=== PATIENT | male | born 1995 | race African-American/Black ===

== ENCOUNTER 2021-01-18 15:29 | Emergency (ER) | payer OTHER ==
[~2021-01-18] VITALS: Ht 165.1 cm; Wt 84.2 kg
[2021-01-18 15:31] VITALS: BP 126/58
== END 2021-01-18 17:26 | disposition left against medical advice (07) ==
LOC: M ED 15:29
DX: Z53.21 Procedure and treatment not carried out due to patient leaving prior to being seen by health care provider (principal)

== ENCOUNTER 2022-08-01 17:31 | Emergency (ER) | payer OTHER ==
[~2022-08-01] VITALS: Ht 165.1 cm; Wt 91.5 kg
[2022-08-01 20:59] VITALS: BP 169/65
== END 2022-08-01 21:05 | disposition home or self-care (01) ==
LOC: M ED 17:31
DX: B34.8 Other viral infections of unspecified site (principal)

== ENCOUNTER 2023-08-18 12:59 | Emergency (ER) | payer OTHER ==
[~2023-08-18] VITALS: Ht 165.1 cm; Wt 95.5 kg
[2023-08-18 15:51] VITALS: BP 136/75; TEMP 97; O2SAT 96
== END 2023-08-18 15:55 | disposition home or self-care (01) ==
LOC: M ED 12:59
DX: M54.50 Low back pain, unspecified (principal)

== ENCOUNTER 2023-11-17 18:23 | Emergency (ER) | payer OTHER ==
[~2023-11-17] VITALS: Ht 165.1 cm; Wt 95.2 kg
[2023-11-17 18:23] VITALS: BP 135/62; TEMP 98.2; O2SAT 96
== END 2023-11-17 20:10 | disposition left against medical advice (07) ==
LOC: M ED 18:23
DX: Z53.21 Procedure and treatment not carried out due to patient leaving prior to being seen by health care provider (principal)